=== PATIENT | female | born 1990 | race Caucasian/White ===

== ENCOUNTER 2023-11-11 02:25 | Inpatient (IN) | payer OTHER ==
[~2023-11-11] VITALS: Ht 154.9 cm; Wt 74.8 kg
[2023-11-11 02:28] VITALS: BP 147/95; PULSE 94; RESP 16; TEMP 98.2; O2SAT 99
[2023-11-11] MEDS: MORPHINE SULFATE 4 MG/ML SYR IVP ONE ×2 (03:51→09:03)
[2023-11-11] MEDS: NACL 0.9% 1,000 ML IV ONE (03:51)
[2023-11-11 03:53] LABS: APPEARANCE,URINE CLEAR (CLEAR); BILIRUBIN,URINE NEGATIVE (NEGATIVE); BLOOD, URINE NEGATIVE (NEGATIVE); COLOR,URINE YELLOW (YELLOW); LEUKOCYTE ESTERASE ,URINE NEGATIVE (NEGATIVE); NITRITE, URINE NEGATIVE (NEGATIVE); PROTEIN,URINE NEGATIVE (NEGATIVE); UGLUCOSE NEGATIVE (NEGATIVE); UROBILINOGEN,URINE 0.2 EU/dL (0.2 - 1)
[2023-11-11 03:55] LABS: BASOPHILS # (AUTO) 0.1 K/uL (0.00-0.22); BASOPHILS % (AUTO) 0.4 % (0.0-2.0); EOSINOPHILS # (AUTO) 0.2 K/uL (0-0.4); HEMATOCRIT 44.8 % (36-48); HEMOGLOBIN 15.5 g/dL (12.0-16.0); LYMPHOCYTES # (AUTO) 2.3 K/uL (2.5-16.5); LYMPHOCYTES % (AUTO) 14.4 % (20.5-51.1); MEAN CORPUSCULAR HEMOGLOBIN 29 pg (27-31); MEAN CORPUSCULAR HGB CONC 35 g/dL (33-37); MEAN CORPUSCULAR VOLUME 82.2 fL (80-94); MONOCYTES # (AUTO) 0.8 K/uL (0.8-1.0); MONOCYTES % (AUTO) 5.3 % (1.7-9.3); NEUTROPHILS # (AUTO) 12.6 K/uL (1.8-7.7); NEUTROPHILS % (AUTO) 78.9 % (42.2-75.2); PLATELET COUNT (AUTO) 176 K/uL (140-450); RED BLOOD CELL COUNT(AUTO) 5.44 MIL/uL (4.20-5.40); RED CELL DISTRIBUTION WIDTH 14.2 % (11.6-13.7)
[2023-11-11 04:05] LABS: ANION GAP 11.9 (8-16); CALCIUM 9.2 mg/dL (8.5-10.1); CARBON DIOXIDE 27.8 mmol/L (21-32); CREATININE 0.8 mg/dL (0.6-1.3); POTASSIUM 3.7 mmol/L (3.5-5.1)
[2023-11-11 04:09] LABS: ALBUMIN 3.5 g/dL (3.4-5.0); BILIRUBIN,DIRECT 0.1 mg/dL (0.0-0.3); TOTAL BILIRUBIN 0.8 mg/dL (0.0-1.0); TOTAL PROTEIN, SERUM 7.8 g/dL (6.4-8.2)
[2023-11-11] MEDS ORDERED: cefTRIAXone 1,000 MG VIAL ONE (06:55)
[2023-11-11] MEDS ORDERED: metroNIDAZOLE 500 MG TAB ONE (07:00)
[2023-11-11] MEDS: metroNIDAZOLE 500 MG/NS PREMIX 100 ML IV ONE (07:16)
[2023-11-11] MEDS ORDERED: ACETAMINOPHEN 325 MG TAB PO PRN (08:45)
[2023-11-11] MEDS ORDERED: ALBUTEROL 0.083% 2.5 MG/3 ML NEBU INH PRN (08:45)
[2023-11-11] MEDS ORDERED: ONDANSETRON 4 MG/2 ML VIAL IVP PRN ×2 (08:45→16:45)
[2023-11-11] MEDS: DEXT 5% /NACL 0.9% 1,000 ML IV SCH (09:05)
[2023-11-11] MEDS: PANTOPRAZOLE 40 MG INJ VIAL IVP SCH (09:09)
[2023-11-11] MEDS: MORPHINE SULFATE 2 MG/ML SYR IVP PRN (09:52)
[2023-11-11 10:10] VITALS: PULSE 87; RESP 18; O2SAT 99
[2023-11-11 13:24] LABS: INR 0.98 (0.8-1.2); PARTIAL THROMBOPLASTIN TIME 31.9 secs (22-35.6); PROTHROMBIN TIME 10.3 secs (10.8-13.4)
[2023-11-11] MEDS: metroNIDAZOLE 500 MG/NS PREMIX 100 ML IV SCH (13:35)
[2023-11-11] MEDS: MORPHINE SULFATE 2 MG/ML SYR IVP SCH (13:37)
[2023-11-11] MEDS ORDERED: SEVOFLURANE 250 ML BTL INH ONE (14:30)
[2023-11-11] MEDS: MIDAZOLAM 2 MG/2 ML VIAL ONE (14:43)
[2023-11-11] MEDS: fentaNYL citrate 0.05 MG/ML VIAL ONE (14:43)
[2023-11-11] MEDS: BUPIVACAINE-MPF 0.25% 30 ML VIAL INJ ONE (15:00)
[2023-11-11] MEDS: LIDOCAINE MPF 2% 100 MG/5 ML VIAL INJ ONE (15:06)
[2023-11-11] MEDS: ROCURONIUM 50 MG/5 ML VIAL IV ONE (15:06)
[2023-11-11] MEDS: METOCLOPRAMIDE 10 MG/2 ML INJ VIAL ONE (15:06)
[2023-11-11] MEDS: ONDANSETRON 4 MG/2 ML VIAL ONE (15:06)
[2023-11-11] MEDS: PROPOFOL 200 MG/20 ML VIAL IV ONE (15:06)
[2023-11-11] MEDS: KETOROLAC 30 MG/ML VIAL ONE (16:08)
[2023-11-11] MEDS: SUGAMMADEX SODIUM 200 MG/2 ML VIAL IV ONE (16:08)
[2023-11-11] MEDS ORDERED: HYDROmorphone 1 MG/ML AMP IVP PRN (16:45)
[2023-11-11] MEDS ORDERED: LACTATED RINGERS 1,000 ML IV SCH (16:45)
[2023-11-11] MEDS ORDERED: MEPERIDINE 25 MG/ML SYR IVP PRN (16:45)
[2023-11-11] MEDS ORDERED: diphenhydrAMINE 50 MG/ML VIAL IVP PRN (16:45)
[2023-11-11 20:00] VITALS: BP 142/84; PULSE 91; RESP 18; TEMP 97.9; O2SAT 97
[2023-11-12 04:00] VITALS: BP 138/78; PULSE 100; RESP 18; TEMP 97.8; O2SAT 97
[2023-11-12 06:49] LABS: ANION GAP 9.3 (8-16); CALCIUM 7.7 mg/dL (8.5-10.1); CREATININE 0.6 mg/dL (0.6-1.3); POTASSIUM 3.3 mmol/L (3.5-5.1)
[2023-11-12 06:56] LABS: BASOPHILS % (AUTO) 0.2 % (0.0-2.0); EOSINOPHILS # (AUTO) 0.1 K/uL (0-0.4); EOSINOPHILS % (AUTO) 0.5 % (0.0-4.0); HEMATOCRIT 37.8 % (36-48); HEMOGLOBIN 12.7 g/dL (12.0-16.0); LYMPHOCYTES # (AUTO) 1.9 K/uL (2.5-16.5); LYMPHOCYTES % (AUTO) 15.4 % (20.5-51.1); MEAN CORPUSCULAR HEMOGLOBIN 29 pg (27-31); MEAN CORPUSCULAR HGB CONC 34 g/dL (33-37); MEAN CORPUSCULAR VOLUME 84.7 fL (80-94); MONOCYTES # (AUTO) 0.8 K/uL (0.8-1.0); MONOCYTES % (AUTO) 6.6 % (1.7-9.3); NEUTROPHILS # (AUTO) 9.5 K/uL (1.8-7.7); NEUTROPHILS % (AUTO) 77.3 % (42.2-75.2); PLATELET COUNT (AUTO) 154 K/uL (140-450); RED BLOOD CELL COUNT(AUTO) 4.46 MIL/uL (4.20-5.40); RED CELL DISTRIBUTION WIDTH 14.1 % (11.6-13.7); WHITE BLOOD COUNT (AUTO) 12.3 K/uL (4.8-10.8)
[2023-11-12 07:03] LABS: ALBUMIN 2.6 g/dL (3.4-5.0); BILIRUBIN,DIRECT 0.3 mg/dL (0.0-0.3); TOTAL BILIRUBIN 1.4 mg/dL (0.0-1.0); TOTAL PROTEIN, SERUM 6.3 g/dL (6.4-8.2)
[2023-11-12 08:00] VITALS: PULSE 85; RESP 17; O2SAT 97
[2023-11-12] MEDS ORDERED: POTASSIUM CHLORIDE 10 MEQ TABER PO SCH (09:00)
[2023-11-12] MEDS: PANTOPRAZOLE 40 MG INJ VIAL IVP SCH (10:42)
[2023-11-12] MEDS: KCL 20 MEQ IN 100 mL PREMIX 100 ML IV SCH (10:43)
[2023-11-12 12:00] VITALS: BP 126/64; PULSE 89; RESP 17; TEMP 98; O2SAT 98
[2023-11-12 20:00] VITALS: BP 122/88; PULSE 94; RESP 18; TEMP 98; O2SAT 98
[2023-11-12] MEDS: HYDROcodone/APAP 5/325 MG 1 TAB TAB PO PRN (23:02)
[2023-11-13 04:00] VITALS: BP 115/74; PULSE 84; RESP 19; TEMP 97.4; O2SAT 98
[2023-11-13 06:51] LABS: BASOPHILS % (AUTO) 0.3 % (0.0-2.0); EOSINOPHILS # (AUTO) 0.5 K/uL (0-0.4); EOSINOPHILS % (AUTO) 4.3 % (0.0-4.0); HEMOGLOBIN 12.8 g/dL (12.0-16.0); LYMPHOCYTES # (AUTO) 1.9 K/uL (2.5-16.5); LYMPHOCYTES % (AUTO) 16.3 % (20.5-51.1); MEAN CORPUSCULAR HEMOGLOBIN 29 pg (27-31); MEAN CORPUSCULAR HGB CONC 35 g/dL (33-37); MONOCYTES # (AUTO) 0.6 K/uL (0.8-1.0); MONOCYTES % (AUTO) 4.7 % (1.7-9.3); NEUTROPHILS # (AUTO) 8.8 K/uL (1.8-7.7); NEUTROPHILS % (AUTO) 74.4 % (42.2-75.2); PLATELET COUNT (AUTO) 178 K/uL (140-450); RED CELL DISTRIBUTION WIDTH 13.7 % (11.6-13.7); WHITE BLOOD COUNT (AUTO) 11.8 K/uL (4.8-10.8)
[2023-11-13 07:23] LABS: ALBUMIN 2.5 g/dL (3.4-5.0); ANION GAP 11.3 (8-16); CALCIUM 7.8 mg/dL (8.5-10.1); CARBON DIOXIDE 26.1 mmol/L (21-32); CREATININE 0.7 mg/dL (0.6-1.3); POTASSIUM 3.4 mmol/L (3.5-5.1); TOTAL BILIRUBIN 0.6 mg/dL (0.0-1.0); TOTAL PROTEIN, SERUM 6.4 g/dL (6.4-8.2)
[2023-11-13] MEDS ORDERED: ACET-8905 PO (10:27)
[2023-11-13] MEDS ORDERED: CEPH-588 PO (10:27)
[2023-11-13 10:33] VITALS: BP 115/74; PULSE 84; RESP 19; TEMP 97.4
== END 2023-11-13 13:57 | disposition home or self-care (01) | DRG 263 ==
LOC: MED 02:25 → MMU 08:50 → MTU 09:42
PROVIDERS: ADMIT Student in an Organized Health Care Education/Training Program; ATTEND Student in an Organized Health Care Education/Training Program
PROC: 0FT44ZZ Resection of Gallbladder, Percutaneous Endoscopic Approach (ICD-10-PCS; principal; 2023-11-11 15:00)
DX: K80.00 Calculus of gallbladder with acute cholecystitis without obstruction (principal); R65.10 Systemic inflammatory response syndrome (SIRS) of non-infectious origin without acute organ dysfunction
CPT/HCPCS: 36415; 76705; 80048; 80053; 80076; 81003; 81025; 82150; 83690; 85025; 85610; 85730; 87040; 87081; 88304; 96365; 96368; 96375; 96376; 99285; C9113; J0696; J1885; J2001; J2250; J2270; J2405; J2704; J2765; J3010; J3480; J3490; J7030; J7060; J7120; Q0092